=== PATIENT | male | born 1955 | race Caucasian/White ===

== ENCOUNTER 2019-10-30 20:53 | Inpatient (IN) | payer OTHER ==
[~2019-10-30 20:53] MED LIST: Iopamidol 370 76% 100 ML VIAL ONE
[2019-10-30 21:24] LABS: Hemoglobin 14.8 g/dL (14.0-18.0); Mean Corpuscular HGB CONC 34.6 g/dL (32.0-36.0); Mean Corpuscular Hemoglobin 34.4 pg (27.0-31.0); Mean Corpuscular Volume 99.6 fL (78.0-98.0); RBC Distribution Width 12.4 % (11.5-14.5); White Blood Cell (WBC) Count 7.6 thou/uL (4.8-10.8)
--- NOTE | 2019-10-30 21:33 | RAD ---
Chest one view HISTORY: Chest pain. FINDINGS: No comparison. Cardiac silhouette is magnified by projection. Pulmonary vasculature is unre markable. Mediastinum is midline. No lobar consolidation or evidence of pneumothorax. IMPRESSION : No abnormalities are demonstrated.
[2019-10-30 21:37] LABS: #Basophils 0.1 thou/uL (0.0-0.2); #Eosinphils 0.5 thou/uL (0.0-0.7); #Lymphocytes 2.9 thou/uL (1.20-3.40); #Monocytes 0.8 thou/uL (0.11-0.59); #Neutrophils 3.3 thou/uL (1.40-6.50); %Basophils 0.7 % (0.0-1.0); %Lymphocytes 38.4 % (21.0-51.0); %Monocytes 10.8 % (0.0-10.0); %Neutrophils 44.1 % (42.0-75.0); Mean Platelet Volume 8.8 fL (7.4-10.4); Platelet Count 94 thou/uL (130-400); Platelet Morphology Comment Appears Decreased; RBC Morphology Normal
[2019-10-30 21:41] LABS: ALT (SGPT) 30 U/L (8-55); AST (SGOT) 57 U/L (5-34); Albumin 3.3 g/dL (3.4-4.8); Alkaline Phosphatase 144 U/L (40-110); Anion Gap 9 mmol/L (10-20); BUN (Urea Nitrogen) 13 mg/dL (8.4-25.7); Bilirubin, Total 1.8 mg/dL (0.2-1.2); Calc. Creatinine Clearance 0 mL/min (70-130); Calcium 8.5 mg/dL (7.8-10.44); Carbon Dioxide 22 mmol/L (23-31); Chloride 109 mmol/L (98-107); Estimated GFR-MDRD Greater than 90; Globulin 4.2 g/dL (2.4-3.5); Glucose 101 mg/dL (80-115); Potassium 3.9 mmol/L (3.5-5.1); Protein, Total 7.5 g/dL (5.8-8.1); Sodium 136 mmol/L (136-145)
[2019-10-30] MEDS ORDERED: Aspirin Chewable 81 MG TAB ONE (21:43)
[2019-10-30] MEDS ORDERED: Ondansetron PF 4 MG/2 ML Vial ONE (21:43)
[2019-10-30] MEDS ORDERED: Morphine 4 MG/ML VIAL ONE (21:43)
[2019-10-30 22:01] LABS: CKMB 2.5 ng/mL (0-6.6)
--- NOTE | 2019-10-30 22:22 | CT ---
CT arteriogram chest with IV contrast and 3-D imaging HISTORY: Chest pain. Dyspnea. FINDINGS: There is good contrast opacification pulmonary arteries and thoracic aorta with normal bran marcela of the great vessels at the aortic arch. Lungs are well-inflated. No evidence of pneumothorax. Nonspecific diffuse enlargement of the trachea. Prominent circumferential wall thickening involving the mid to distal esophagus. No focal mass is caprice arent. Nodular contour of the liver. Incompletely united intra-articular fracture involving the left glenoid. Chronic appearing compression deformities involving the T8, T11, and L1 vertebrae. IMPRESSION : No CT evidence of pulmonary embolus. Cirrhotic appearance of the liver. Circumferential wall thickening of the mid to distal esophagus cou ld be related to portal venous hypertension. Clinical correlation regarding other signs and symptoms of severe esophagitis is required. Please consider endoscopic evaluation. Intra-articular incompletely healed fracture of the left glenoid. Chronic compression deformities of thoracolumbar vertebrae.
--- NOTE | 2019-10-30 22:29 | ULT ---
Venous duplex sonogram left lower extremity HISTORY: Left leg pain and edema. FINDINGS: The left common femoral vein and greater saphenous junction were evaluated along with the f emoral, deep femoral, popliteal, and posterior tibial veins. There is good color and spectral Doppler flow, compression, and augmentation. IMPRESSION : Normal exam.
[2019-10-30] MEDS ORDERED: Clindamycin/D5W 900 mg/50 ml Premix Bag ONE (23:05)
[2019-10-31] MEDS ORDERED: Sodium Chloride 0.9% (PF) 10 ML VIAL FS PRN (01:00)
[2019-10-31 01:07] LABS: Troponin I 0.018 ng/mL (< 0.028)
[2019-10-31 01:35] VITALS: BMI 30.9
--- NOTE | 2019-10-31 01:47 | HP ---
REASON FOR ADMISSION: Swelling of left lower extremity. 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 He presents to the ER reporting chest pain and left lower leg swelling. He came back three days before his presentation. He drove to [place] back and forth and noticed that his left lower extremity has been swollen and remained swollen. He reports that usually he gets swelling of his bilateral lower extremities, but they go down after he sleeps overnight, but this time his left lower extremity did not improve, so he was concerned that he has a DVT. He also has been reporting chest pain localized in the left parasternal area described as stabbing in nature. More when he lays on that side, the pain is reproducible with palpation. It is associated with slight shortness of breath. In the ER, CAT scan of the chest did reveal liver cirrhosis, but patient did deny being alcoholic. PAST MEDICAL HISTORY: The patient does not have any medical problems. SURGICAL HISTORY: He had knee cap fracture. He did undergo surgeries a long time go. SOCIAL HISTORY: He does not smoke. He drinks alcohol occasionally. He denies being an alcoholic. FAMILY HISTORY: Negative for premature coronary artery disease. REVIEW OF SYSTEMS: All systems reviewed except the above mentioned, found to be negative. PHYSICAL EXAMINATION: GENERAL: He is awake, alert, oriented, does not appear in distress. VITAL SIGNS: His blood pressure is 133/84, heart rate of 99, and temperature is 98.3, saturating 99% on room air. HEENT: Head is nontraumatic, normocephalic. Pupils equal, reactive. Extraocular movements are intact. Nonicteric sclerae. Well injected conjunctivae. Oral mucosa normal. Nasal mucosa normal. NECK: Supple. No adenopathy. No murmur. Thyroid is not palpable. Trachea is midline. No supraclavicular adenopathy. HEART: S1, S2 regular. No murmur. No gallops. No friction rubs. No displacement of PMI. LUNGS: Clear to auscultation bilaterally. No wheezes, rhonchi, no crackles. Bowel sounds are positive. Slight tenderness on palpation of the epigastric area. EXTREMITIES: He does have 2+ pitting edema in right lower extremity, 3+ pitting edema in left lower extremity, and the left lower extremity is more red. It is a bit warm to touch. NEURO: Cranial nerves 2 through 12 within normal limits. Normal motor function. Normal sensory function. LABORATORY DATA: Blood work shows WBC of 7.6, hemoglobin of 14.8, platelets of 94. No previous labs to compare with. Sodium 136, potassium 3.9, bicarb 22, BUN 13, creatinine 0.84, total bilirubin 1.8, AST 57, ALT 30, alk phos 144, troponin 0.029. Albumin is 3.3. CT of the chest shows cirrhotic appearance of the liver, no PE, circumferential wall thickening of the mid to distal esophagus, could be related to portal venous hypertension. Symptoms of severe esophagitis are required. Consider endoscopic evaluation, intra-articular incompletely healed fracture of the left glenoid, chronic compression deformity of the thoracolumbar vertebra. EKG shows no ST-segment or T-wave changes as per my read. A Doppler of lower extremity negative for DVT. ASSESSMENT AND PLAN: This is a 64-year-old male patient presenting with swelling of his left lower extremity could be secondary to cellulitis. His bilateral lower extremity could be due to portal hypertension in the setting of liver cirrhosis and since he denies being alcoholic, the underlying cause could be fatty liver. The patient does have chest pain reproducible with palpation, but slightly abnormal troponin. Cardiac: The patient will be admitted to telemetry. We will continue cycling his cardiac enzymes and we will schedule him for a nuclear stress test in the morning. We will also check lipid profile. He will be on baby aspirin. GI. The patient does have cirrhosis with evidence of portal hypertension. We will ask GI to assess him. In regard of his left lower extremity cellulitis, he will be on IV clindamycin. For deep venous thrombosis prophylaxis, he will be on Lovenox. Job ID: [id number]
[2019-10-31 05:24] LABS: #Basophils 0.1 thou/uL (0.0-0.2); #Eosinphils 0.4 thou/uL (0.0-0.7); #Lymphocytes 2.1 thou/uL (1.20-3.40); #Monocytes 0.8 thou/uL (0.11-0.59); #Neutrophils 2.3 thou/uL (1.40-6.50); %Basophils 1.1 % (0.0-1.0); %Lymphocytes 37.6 % (21.0-51.0); %Monocytes 13.4 % (0.0-10.0); Hemoglobin 12.9 g/dL (14.0-18.0); Mean Corpuscular HGB CONC 33.2 g/dL (32.0-36.0); Mean Corpuscular Hemoglobin 33.2 pg (27.0-31.0); Mean Platelet Volume 9.2 fL (7.4-10.4); Platelet Count 78 thou/uL (130-400); RBC Distribution Width 12.3 % (11.5-14.5); Red Blood Cell (RBC) Count 3.87 mill/uL (4.70-6.10); White Blood Cell (WBC) Count 5.6 thou/uL (4.8-10.8)
[2019-10-31 05:44] LABS: Troponin I 0.025 ng/mL (< 0.028)
[2019-10-31] MEDS: Clindamycin/D5W 600 MG in Premix Bag 1 BAG IVPB SCH ×3 (05:44→22:08)
[2019-10-31 05:46] LABS: ALT (SGPT) 26 U/L (8-55); AST (SGOT) 49 U/L (5-34); Albumin 2.8 g/dL (3.4-4.8); Alkaline Phosphatase 129 U/L (40-110); Anion Gap 11 mmol/L (10-20); BUN (Urea Nitrogen) 15 mg/dL (8.4-25.7); Calc. Creatinine Clearance 147 mL/min (70-130); Calcium 8.1 mg/dL (7.8-10.44); Carbon Dioxide 21 mmol/L (23-31); Cardiac Risk 2.7 (Less than 4.5); Chloride 110 mmol/L (98-107); Cholesterol 130 mg/dl (< 200 Desired); Estimated GFR-MDRD Greater than 90; Globulin 3.6 g/dL (2.4-3.5); Glucose 105 mg/dL (80-115); HDL Cholesterol 48 mg/dL (>60 Neg Risk); LDL Cholesterol, Calculated 68 mg/dL; Potassium 3.7 mmol/L (3.5-5.1); Protein, Total 6.4 g/dL (5.8-8.1); Sodium 138 mmol/L (136-145); Triglycerides 70 mg/dL (Less than 150)
[2019-10-31] MEDS: Aspirin 81 mg Enteric Coated Tablet PO SCH (11:47)
[2019-10-31] MEDS: Pantoprazole 40 MG VIAL IVP SCH ×2 (11:48→22:08)
[2019-10-31] MEDS: Enoxaparin Sodium 40 MG/0.4 ML SYRINGE SC SCH (11:48)
--- NOTE | 2019-10-31 12:05 | NM ---
EXAM: CARDIAC SPECT HISTORY: Chest pain TECHNIQUE: A myocardial perfusion scan was performed using the single isotope 1 day protocol with marv hnetium 99m sestamibi. [10 mCi] was injected intravenously for the rest exam followed by 30 mCi for the stress study. Pharmacologic stress with adenosine was monitored and interpreted by Dr. Olson FINDINGS: Homogeneous tracer distribution is seen in the myocardial segments on stress and rest image s without fixed or reversible defects. Gated SPECT LVEF: 76% Wall motion exam: Normal IMPRESSION: Normal myocardial perfusion scan
[2019-10-31] MEDS ORDERED: traMADol HCl 50 MG TAB PO PRN (14:32)
[2019-10-31] MEDS ORDERED: Acetaminophen 325 MG TAB PO PRN (14:33)
--- NOTE | 2019-10-31 14:35 | PDOC.HOSPP ---
- Subjective Encounter Date: 10/31/19 Encounter Time: 14:33 Subjective: Debbie kim was seen today in follow-up of cellulitis and probable esophagitis. He notes continued pain in his left leg. - Objective Vital Signs & Weight: Vital Signs (12 hours) Temp Pulse Resp BP BP Pulse Ox 10/31/19 11:48 97.8 F 88 18 128/77 99 10/31/19 07:35 97.8 F 89 20 109/68 96 10/31/19 03:57 97.9 F 91 20 118/68 95 Weight Weight 247 lb 11.2 oz I&O: 10/30/19 10/31/19 11/01/19 06:59 06:59 06:59 Intake Total 500 240 Balance 500 240 Result Diagrams: 10/31/19 04:25 10/31/19 04:25 Hospitalist ROS - Medication Medications: Active Medications Generic Name Dose Route Start Last Admin Trade Name Freq PRN Reason Stop Dose Admin Aspirin 81 mg 10/31/19 09:00 10/31/19 11:47 Ecotrin PO 81 mg DAILY RADHA Administration Enoxaparin Sodium 40 mg 10/31/19 09:00 10/31/19 11:48 Lovenox SC Not Given 0900 RADHA Clindamycin Phosphate/Dextrose 50 mls @ 100 mls/hr 10/31/19 06:00 10/31/19 05 :44 600 mg/ Device IVPB 50 mls Q8HR RADHA Administration Pantoprazole Sodium 40 mg 10/31/19 09:00 10/31/19 11:48 Protonix IVP 40 mg Q12HR RADHA Administration - Exam Eye: PERRL, anicteric sclera Heart: RRR, no murmur, no gallops, no rubs, normal peripheral pulses Respiratory: CTAB, no wheezes, no rales, no ronchi, normal chest expansion Gastrointestinal: soft, non-tender, non-distended, normal bowel sounds, no palpable masses Extremities: no cyanosis, 1+ LE edema (+ erythema and warmth in the left lower extremity) Extremities - other findings: + swelling in the left leg, with mild erythema. Pulses are present in d.p. Skin: normal turgor Hosp A/P (1) Cellulitis of left lower extremity Code(s): L03.116 - CELLULITIS OF LEFT LOWER LIMB Status: Acute (2) Esophagitis Code(s): K20.9 - ESOPHAGITIS, UNSPECIFIED Status: Acute (3) Cirrhosis of liver Code(s): K74.60 - UNSPECIFIED CIRRHOSIS OF LIVER Status: Acute - Plan * Cellulitis of the left Lower extremity- continue Clindamycin * Chest pain- stress test was negative, and suspect the symptoms are due to esophagitis * Will continue Protonix, and await GI evaluation * Will checnge his status to inpatient, given he will require at least 1 one more midnight to treat the cellulitis, and adequately evaluate the esophagitis. * Cirrhosis of the liver- ? etiology- Hepatitis panel has been ordered
[2019-10-31 14:54] LABS: SARS-CoV-2 MS2 Positive; SARS-CoV-2 N Gene Negative; SARS-CoV-2 S Gene Negative; SARS-CoV-2 by NAA Not Detected (NotDetected); SARS-CoV-2 orf1ab Negative
[2019-10-31 15:46] LABS: HBCM Index 0.07 S/CO (0-0.79); HBSAg Index 0.21 S/CO (0-0.99); Hep A IgM AB Non-Reactive (NonReactive); Hep A IgM S/CO 0.11 S/CO (0-0.79); Hep B Surf Ag Non-Reactive S/CO (NonReactive); Hepatitis B Core IgM Abs Non-Reactive (NonReactive)
[2019-10-31 16:04] LABS: Hep C IgG Ab Reflex HepC Qnt (NonReactive); Hep C Index 11.49 S/CO (0-0.79)
[2019-10-31] MEDS: HYDROcodone/Acetaminophen 5/325 mg Tablet PO PRN (18:17)
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
[2019-11-01] MEDS: Clindamycin/D5W 600 MG in Premix Bag 1 BAG IVPB SCH (05:52)
[2019-11-01] MEDS: HYDROcodone/Acetaminophen 5/325 mg Tablet PO PRN ×3 (06:27→19:18)
[2019-11-01] MEDS ORDERED: Fentanyl 100 MCG/2 ML VIAL ONE (08:28)
[2019-11-01] MEDS ORDERED: Ondansetron HCl/PF 4 MG/2 ML Vial IVP PRN (08:53)
[2019-11-01] MEDS ORDERED: PACU-Morphine 4MG/ML VIAL SLOW IVP PRN (08:53)
[2019-11-01] MEDS ORDERED: Promethazine HCl 25 MG/ML VIAL IM PRN (08:53)
[2019-11-01] MEDS ORDERED: Promethazine HCl 25 MG/ML VIAL SLOW IVP PRN (08:53)
[2019-11-01] MEDS ORDERED: PROPOFOL 200 MG/20 ML VIAL ONE (08:58)
[2019-11-01] MEDS ORDERED: Lidocaine 1% PF 5 ML VIAL ONE (08:58)
--- NOTE | 2019-11-01 09:51 | OP ---
DATE OF PROCEDURE: 11/01/2019 PROCEDURES PERFORMED: Esophagogastroduodenoscopy with biopsy. INDICATION FOR PROCEDURE: New diagnosis of cirrhosis, abnormal imaging showing thickening of the distal esophagus. DESCRIPTION OF PROCEDURE: After the risks and benefits of the procedure were explained to the patient including risks of bleeding, infection, perforation, reactions to anesthesia, aspiration, and/or pain, informed consent was obtained. The patient was then taken to the endoscopy suite, where he was maneuvered into the left lateral decubitus position, followed by introduction of deep sedation via propofol and anesthesia support. Once adequate sedation was achieved, the standard gastroscope was introduced into the mouth with intubation of the esophagus, stomach, and the proximal small intestines with the findings listed below. The patient tolerated the procedure well with no immediate perioperative complications. On conclusion of the procedure, all equipment was removed from the patient and the patient was transferred to PACU in satisfactory condition. FINDINGS: Esophagus: Normal-appearing mucosa was seen in the proximal esophagus, however, within the mid and distal esophagus three columns of large (grade 2) esophageal varices were seen without any high-risk stigmata of active or recent bleeding. Otherwise, there was no mucosal abnormalities in this region. However, upon visualization of the gastroesophageal junction, the diaphragmatic pinch was well seen at 45 cm while the gastroesophageal junction was seen at approximately 43 cm, past the incisors denoting a 2 cm hiatal hernia, salmon-colored mucosa was seen extending up from the diaphragmatic pinch and past the gastroesophageal junction, approximately 1 cm past the GE junction. 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 Given the concurrent existence of esophageal varices, no biopsies were taken given increased risk of bleeding and complication. Otherwise, there was no evidence of erosions, ulcerations, mass lesions, or active/recent bleeding. Stomach: Increased mucosal erythema in a mosaic-type pattern was seen throughout the entire stomach affecting the gastric cardia, fundus, body, greater curvature, and incisura. The amount of increased erythema was moderate in intensity, three 2-4 mm linear ulcerations were seen in the gastric antrum that displayed a very superficial type appearance and did not have any high-risk stigmata of bleeding associated with them. Multiple biopsies were taken from these ulcerations for further evaluation. Otherwise, there was no evidence of mass lesions or active/recent bleeding. Mucosa in the antrum otherwise appeared normal. Duodenum: Normal-appearing mucosa was seen in both the duodenal bulb and second portion of the duodenum. There was no evidence of erosions, ulcerations, mass lesions, or active/recent bleeding. IMPRESSION: 1. Large (grade 2) nonbleeding esophageal varices seen in the distal esophagus; no intervention taken. 2. Riverside-colored mucosa seen in the distal esophagus consistent with Delgadillo's mucosa ([place] classification C0, M1) with no biopsies taken due to increased risk of bleeding .. 3. Moderate portal hypertensive gastropathy. 4. 2-cm hiatal hernia. 5. Three superficial ulcerations seen in the gastric antrum, status post biopsies for possible Helicobacter pylori. 6. No evidence of gastric varices. RECOMMENDATIONS: 1. We will follow up on the biopsy results with repeat upper endoscopy dictated by pathology report. 2. If the pathology is positive for Helicobacter pylori, I would place the patient on triple therapy for eradication of the bacterium. 3. I will place the patient on propranolol 20 mg b.i.d. in light of large varices that have not bled in the past in addition to his portal hypertensive gastropathy. 4. Would avoid any NSAIDs. 5. We will place the patient on omeprazole 20 mg daily in light of possible Delgadillo mucosa in the distal esophagus. 6. We will follow up on the further serologies for workup related to his liver disease. From a GI standpoint, this patient could be potentially discharged to home and follow up in the outpatient GI clinic for management of his cirrhosis and treatment of his chronic hepatitis C. We will sign off at this time. Please call with any questions. Job ID: [id number]
[2019-11-01 10:52] LABS: INR-International Normal Ratio 1.5; Prothrombin Time 17.6 sec (12.0-14.7)
[2019-11-01] MEDS: Enoxaparin Sodium 40 MG/0.4 ML SYRINGE SC SCH (11:07)
[2019-11-01] MEDS: Aspirin 81 mg Enteric Coated Tablet PO SCH (11:07)
[2019-11-01] MEDS: Pantoprazole 40 MG VIAL IVP SCH (11:14)
--- NOTE | 2019-11-01 11:18 | PDOC.HOSPP ---
- Subjective Encounter Date: 11/01/19 Encounter Time: 11:17 Subjective: Mr. Lazo was seen today in follow-up of cellulitis of the left leg, and new diagnosis of cirrhosis. He says his leg is still swollen. He feelsmore pain in the ankle. - Objective Vital Signs & Weight: Vital Signs (12 hours) Temp Pulse Resp BP Pulse Ox 11/01/19 10:05 97.9 F 76 16 145/75 H 100 11/01/19 07:22 98 F 78 15 117/70 96 11/01/19 03:51 97.9 F 76 23 H 125/69 97 Weight Weight 247 lb 11.2 oz I&O: 10/31/19 11/01/19 11/02/19 06:59 06:59 06:59 Intake Total 500 1200 Output Total 650 900 Balance 500 550 -900 Result Diagrams: 10/31/19 04:25 10/31/19 04:25 Hospitalist ROS - Medication Medications: Active Medications Generic Name Dose Route Start Last Admin Trade Name Freq PRN Reason Stop Dose Admin Acetaminophen 325 mg 10/31/19 14:33 10/31/19 17:33 Tylenol PO 325 mg Q4H PRN Administration Headache/Fever or Pain Hydrocodone Bitart/Acetaminophen 1 tab 10/31/19 17:54 11/01/19 06:27 Oakley 5/325 PO 1 tab Q4H PRN Administration Moderate to Severe Pain (6-10) Tramadol HCl 50 mg 10/31/19 14:32 10/31/19 15:19 Ultram PO 50 mg Q6H PRN Administration Moderate Pain (4-6) - Exam Eye: PERRL, anicteric sclera Heart: RRR, no murmur, no gallops, no rubs, normal peripheral pulses Respiratory: CTAB, no wheezes, no rales, no ronchi, normal chest expansion, no tachypnea Gastrointestinal: soft, non-tender, non-distended, normal bowel sounds, no palpable masses, no hepatomegaly Extremities: no cyanosis (+ varicose vein bilaterally. + erythema in the left leg, and mild warmth. it appears very simialr in appearance from yesterday.) Hosp A/P (1) Cellulitis of left lower extremity Code(s): L03.116 - CELLULITIS OF LEFT LOWER LIMB Status: Acute (2) Esophagitis Code(s): K20.9 - ESOPHAGITIS, UNSPECIFIED Status: Acute (3) Cirrhosis of liver Code(s): K74.60 - UNSPECIFIED CIRRHOSIS OF LIVER Status: Acute - Plan * Cellulitis of the left Lower extremity- will change to oral clindamycin, and monitor the effect * Cirrhosis- likely due to Chronic hepatitis C- plan is to follow-up with Dr. Kruse outpatient to initiate treatment. Follow-up with the other serologies as an outpatient * He has also been started on Propranolol for esophageal varices , as well as Omeprazole * Delgadillo's Esophagus- continue PPI * Hopefully home tomorrow
[2019-11-01] MEDS: Clindamycin 150 MG CAP PO SCH ×3 (12:13→23:45)
[2019-11-01] MEDS: Propranolol HCl 20 MG TAB PO SCH (20:31)
[2019-11-01] MEDS ORDERED: Propranolol 40 MG TAB PO SCH (21:00)
[2019-11-02] MEDS: HYDROcodone/Acetaminophen 5/325 mg Tablet PO PRN (01:23)
[2019-11-02] MEDS: Clindamycin 150 MG CAP PO SCH ×2 (05:58→13:23)
[2019-11-02] MEDS: Propranolol HCl 20 MG TAB PO SCH (07:49)
[2019-11-02 10:17] VITALS: BP 117/67; TEMP 98.1
--- NOTE | 2019-11-02 12:09 | RAD ---
LEFT ANKLE 3 VIEWS: INDICATION: Left ankle pain. COMPARISON: None. FINDINGS: No acute fracture or subluxation is evident. Enthesopathic change is seen off the plantar calcaneus. Ankle mortise and talar dome are preserved. Visualized hindfoot appears intact. IMPRESSION: No acute osseous abnormality. POS: BH
--- NOTE | 2019-11-02 15:17 | DIS ---
DATE OF ADMISSION: 10/31/2019 DATE OF DISCHARGE: 11/02/2019 DISCHARGE DIAGNOSES: 1. Cellulitis of the left lower extremity. 2. Chest pain. 3. Liver cirrhosis. 4. Esophagitis. HOSPITAL COURSE: The patient is a 64-year-old male, who initially presented to the hospital on 10/30 with complaints of swelling of the left lower extremity. At this time, Doppler of the left lower extremity did not indicate any DVT. 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 CTA did not indicate any acute pulmonary embolism, however, indicate a cirrhotic appearing liver with circumferential wall thickening in the mid to distal esophagus related to portal vein hypertension. The patient was seen by GI and underwent an EGD, which indicated a large nonbleeding esophageal varices in the distal esophagus and salmon-colored mucosa seen in the distal esophagus consistent with [place]illo mucosa. I did tell the patient that he will have to follow up with GI for the biopsy results and also may require a repeat EGD. He also has 3 superficial ulcerations. The patient was put on propranolol and also was asked to avoid NSAIDs, and I have explained this to the patient. The patient will be discharged home. He will follow up with his primary and also with GI. He is going to be going home with propranolol 20 mg twice a day, omeprazole 20 mg daily, clindamycin 300 mg every 6 hours, and Florastor 250 mg p.o. daily. PHYSICAL EXAMINATION: VITAL SIGNS: On discharge, temperature 98.1, pulse 65, respirations 18, O2 sat 96% on room air, blood pressure 117/67. GENERAL: He is awake, alert, and oriented x3. Does not appear in distress. CV: S1, S2 present. No murmurs, rubs, or gallops. He will be discharged home to follow up with primary and GI. Job ID: [id number]
[2019-11-03 16:02] LABS: ANA Symphony (Qualitative) Negative (Negative); ANA Symphony (Quantitative) 0.6 Ratio (< 0.7 Negative); EliA Vaculitis New Method **** NEW METHOD ****; Mitochondrial Ab 2.3 U/mL (<4 Negative); dsDNA IgG Antibody 1.6 IU/mL (<10 Negative)
--- NOTE | 2019-11-06 15:54 | EKG ---
Test Reason : Blood Pressure : / mmHG Vent. Rate : 092 BPM Atrial Rate : 092 BPM P-R Int : 210 ms QRS Dur : 108 ms QT Int : 372 ms P-R-T Axes : 044 007 004 degrees QTc Int : 460 ms Sinus rhythm with 1st degree A-V block Possible Left atrial enlargement Right bundle branch block Abnormal ECG Confirmed by VIELKA ALVARES, EVANGELIST ([id number]), editor farm journal ANSHUL CRAIG ([id number]) on 11/06/2019 3:53:17 PM Referred By: Confirmed By:EVANGELIST VORA MD
--- NOTE | 2019-11-19 13:26 | STRESS ---
Acquisition Time: 2019-10-31 10:24:16 Total Exercise Time: 00:04:00 Test Indications: CHEST PAIN Medications: Protocol: ADENOSINE Max HR: 098 BPM 62% of Pred: 157 BPM Max BP: 124/064 mmHG Max Work Load: 1.0 METS RESTING ECG: NORMAL SINUS RHYTHM AT 75 BPM WITH FIRST DEGREE AV BLOCK AND EARLY R-WAVE TRANSITION SYMPTOMS: NONE NORMAL BP RESPONSE ECTOPY: RARE PVC'S ECG STRESS: NO SIGNIFICANT CHANGES INTERPRETATION: NEGATIVE ECG/AWAIT NUCLEAR IMAGES FOR DEFINITIVE DIAGNOSIS Confirmed by JORDAN COLBERT M.D. ([id number] on 11/19/2019 1:25:34 PM Referred By: MD Bebeto HERNANDEZ Confirmed By:JORDAN COLBERT M.D.
== END 2019-11-02 14:09 | disposition home or self-care (01) | DRG 433 ==
LOC: ERS 20:53 → 2SW 10-31 00:54 → OBSVTOIN 10-31 01:03 → 2SW 10-31 01:03 → 3SW 11-02
PROVIDERS: ADMIT Internal Medicine; ATTEND Internal Medicine
PROC: 0DB78ZX Excision of Stomach, Pylorus, Via Natural or Artificial Opening Endoscopic, Diagnostic (ICD-10-PCS; principal; 2019-11-01)
DX: K74.60 Unspecified cirrhosis of liver (principal); L03.116 Cellulitis of left lower limb; K76.6 Portal hypertension; I85.00 Esophageal varices without bleeding; Z20.828 Contact with and (suspected) exposure to other viral communicable diseases; R07.9 Chest pain, unspecified; Z96.641 Presence of right artificial hip joint; Z96.652 Presence of left artificial knee joint; D69.6 Thrombocytopenia, unspecified; B18.2 Chronic viral hepatitis C; K22.70 Barrett's esophagus without dysplasia; K31.89 Other diseases of stomach and duodenum; K44.9 Diaphragmatic hernia without obstruction or gangrene; K25.9 Gastric ulcer, unspecified as acute or chronic, without hemorrhage or perforation; I10 Essential (primary) hypertension; K20.9 Esophagitis, unspecified; Z86.718 Personal history of other venous thrombosis and embolism; Z88.0 Allergy status to penicillin; Z88.8 Allergy status to other drugs, medicaments and biological substances
CPT/HCPCS: 36415; 71045; 71275; 78452; 80053; 80061; 80074; 82103; 82390; 82553; 82728; 83516; 83540; 83550; 84484; 85025; 85610; 86038; 86225; 87040; 87522; 87635; 88305; 88312; 93005; 93017; 96365; 96366; 96375; 96376; A9500; C9113; G0378; J0153; J2270; J2405; J2704; J3010; J3490; Q9967; U0003

== ENCOUNTER 2020-06-03 07:44 | Outpatient (CLI) | payer OTHER | END 2020-06-03 07:45 | disposition home or self-care (01) | LOC: BICULT 07:44 | PROVIDERS: ATTEND Physician Assistant Medical | DX: K74.60 Unspecified cirrhosis of liver (principal); B18.2 Chronic viral hepatitis C; R16.1 Splenomegaly, not elsewhere classified; K82.8 Other specified diseases of gallbladder | CPT/HCPCS: 76705 ==